=== PATIENT | male | born 1995 | race Caucasian/White ===

== ENCOUNTER 2018-01-08 21:33 | Emergency (ER) | payer OTHER ==
[~2018-01-08] VITALS: Ht 177.8 cm; Wt 77.1 kg
--- NOTE | 2018-01-08 21:51 | NUR ---
PT UNDER [employer] CUSTODY FOR "[employer]AY [employer]OOK" C/O RIGHT FA PAIN, HX RECENT RIGHT ARM BROKEN AND TOOK OFF CAST. PT AOX3 RR EVEN AND UNLABORED. NO SOB NOTED. NAD NOTED. NO NVD AT THIS TIME. PT WAITING FOR MD VICENTE.
[2018-01-08] MEDS ORDERED: HYDROCODONE/APAP 5/325MG 1 EACH TABLET ONE (22:21)
--- NOTE | 2018-01-08 22:26 | NUR ---
PT DC UNDER [employer] CUSTODY, DC INSTRUCTION GIVEN TO PT, PT VERBALIZE UNDERSTANDING. PT AMBULATORY.
[2018-01-08 22:28] VITALS: BP 123/60
[2018-01-08] MEDS ORDERED: HYDROCODONE/APAP 5/325MG 1 EACH TABLET PO ONE (22:30)
== END 2018-01-08 22:30 ==
LOC: ER 21:37
DX: S52.391A Other fracture of shaft of radius, right arm, initial encounter for closed fracture (principal); X58.XXXA Exposure to other specified factors, initial encounter; Y93.89 Activity, other specified; Y92.89 Other specified places as the place of occurrence of the external cause; Y99.8 Other external cause status
CPT/HCPCS: 29105; 73090; 99284; A4606; Z7610